=== PATIENT | female | born 1940 | race Caucasian/White ===

== ENCOUNTER → 2024-06-11 | Outpatient (CLI) | payer MEDICARE, BC, SELFPAY ==
[2024-06-11 17:03] LABS: C-Reactive Protein 0.5 mg/dL (0.0-0.9)
[2024-06-11 17:46] LABS: Sed Rate (ESR) 4 mm/hr (0-30)
== END | disposition home or self-care (01) ==
LOC: COPL 15:44
PROVIDERS: PCP Internal Medicine; Referring Provider Orthopaedic Surgery; Visit Provider Orthopaedic Surgery
DX: Z96.641 Presence of right artificial hip joint (principal)
CPT/HCPCS: 36415; 85652; 86140

== ENCOUNTER → 2024-06-25 | Outpatient (CLI) | payer MEDICARE, BC, SELFPAY ==
--- NOTE | 2024-06-25 | XR_ITS ---
Examination: MRI pelvis, without contrast Date and time of exam: June 25, 2024 0732 hours INDICATIONS: Left hip pain 3 months increasing in severity the last 3 weeks Technique: Multiple axial sagittal and coronal images of the pelvis have been obtained with the Siemens high-resolution 1.5 Bernadette MRI scanner. Images obtained include T2-weighted fat-suppressed sagittal sections, TR 3500, TE 46, T2 weighted coronal fat suppressed images, TR 3050, TE 84, T2-weighted transverse fat suppressed images, TR 3260, TE 63, proton density transverse images, TR 4720 TE 46, and T1 weighted coronal images, TR 560, TE 13. Findings: Extensive magnetic susceptibility artifact right hip secondary to orthopedic hardware Mild narrowing left hip joint No left hip fracture or bone contusion marrow edema or avascular necrosis No labral tear identified Adequate marrow signal bones of the pelvis, transpedicular fixation screws degrade image quality in the sacrum Urinary bladder intact No free fluid in the pelvis IMPRESSION: Mild narrowing left hip joint No left hip fracture bone contusion marrow edema or avascular necrosis Consider follow-up high resolution small [id number] images left hip to assess for labral tear
== END | disposition home or self-care (01) ==
LOC: SMRI 06:56
PROVIDERS: PCP Internal Medicine; Referring Provider Orthopaedic Surgery; Visit Provider Orthopaedic Surgery
DX: M25.852 Other specified joint disorders, left hip (principal); Z96.641 Presence of right artificial hip joint
CPT/HCPCS: 72195

== ENCOUNTER → 2024-06-30 | Outpatient (CLI) | payer MEDICARE, BC, SELFPAY ==
[2024-06-30 13:40] LABS: Thyroid Stimulating Hormone 4.63 uIU/mL (0.55-4.78)
[2024-07-07 06:51] LABS: ANA Pattern NUCLEAR, SPECKLED; ANA Screen, IFA POSITIVE (NEGATIVE)
== END | disposition home or self-care (01) ==
LOC: COPL 12:21
PROVIDERS: PCP Internal Medicine; Referring Provider Specialist; Visit Provider Specialist
DX: Z01.89 Encounter for other specified special examinations (principal)
CPT/HCPCS: 36415; 84443; 86038; 86039

== ENCOUNTER 2024-07-11 13:46 | Day surgery (SDC) | payer MEDICARE, BC, SELFPAY ==
[2024-07-11] VITALS (9 sets, daily range): BP systolic 131–172; BP diastolic 73–117; PULSE 55–69; RESP 10–22; TEMP 36.8; O2SAT 95–99; BMI 33.6
[2024-07-11] MEDS: DiphenhydrAMINE INJ 50 MG/ML VIAL 25 MG IV (14:55)
[2024-07-11] MEDS: MIDAZOLAM INJ 1 MG/ML VIAL 2 ML (ASD USE ONLY) 2 MG IV (14:57)
[2024-07-11] MEDS: fentaNYL CIT INJ 50 mCg/ML AMP 2ML (ASD USE ONLY) IV (14:58)
--- NOTE | 2024-07-11 16:38 | SUR.PHASEII ---
1416: Pt received for recovery. Report from Miguelina SHEARER. Pt groggy, but awake. Resp even, unlabored. VS stable. Denies pain. 1545: Pt more awake, alert. Sitting up tolerating po fluids with no difficulty swallowing and no n/v. 1500: Pt fully awake, oriented x3. Pt assisted to restroom. Ambulation steady. 1620: Pt and stated understanding of discharge instructions. Pt also instructed to insulation supervisor her prescription at [facility]. Pt discharged from [facility] in stable condition.
== END 2024-07-11 16:20 | disposition home or self-care (01) ==
PROVIDERS: PCP Internal Medicine; Referring Provider Specialist; Visit Provider Specialist
PROC: (CPT 43239; principal; 2024-07-11 14:30)
DX: K22.2 Esophageal obstruction (principal); K29.71 Gastritis, unspecified, with bleeding; K22.11 Ulcer of esophagus with bleeding; K31.89 Other diseases of stomach and duodenum; K29.51 Unspecified chronic gastritis with bleeding
CPT/HCPCS: 43248; 43239; C1769; J1200; J2250; J3010

== ENCOUNTER → 2024-08-28 | Outpatient (CLI) | payer MEDICARE, BC, SELFPAY ==
[2024-08-28 11:01] LABS: Collection Type, Urine Clean Catch
[2024-08-28 11:27] LABS: Basophils % (Auto) 1 % (0-2.5); Eosinophils # (Auto) 0.2 Thou/mm3 (0.0-0.5); Eosinophils % (Auto) 4 % (0-10); Hematocrit 45.2 % (36.0-46.0); Immature Granulocytes % (Auto) 0 % (0-0); Immature Granulocytes Auto 0.01 Thou/mm3 (0.00-0.00); Lymphocytes # (Auto) 1.2 Thou/mm3 (1.0-4.8); Lymphocytes % (Auto) 27 % (10-50); Mean Corpuscular HGB Conc 33.2 g/dl (31.0-37.0); Mean Corpuscular Hemoglobin 31.1 pg (25.0-35.0); Mean Corpuscular Volume 94 fL (80-100); Monocytes # (Auto) 0.4 Thou/mm3 (0.0-0.8); Monocytes % (Auto) 8 % (0-12); Neutrophils # (Auto) 2.8 Thou/mm3 (1.8-7.7); Neutrophils % (Auto) 61 % (37-80); Nucleated Red Blood Cell % 0 /100 WBC (0); Platelet Count 296 Thou/mm3 (140-440); RDW Standard Deviation 42.3 fL (36.4-46.3); Red Blood Count 4.83 Miln/mm3 (4.00-5.20); White Blood Count 4.6 Thou/mm3 (3.6-11.0)
[2024-08-28 11:33] LABS: Bacteria,Urine 1+; Bilirubin,Urine Negative (Negative); Blood,Urine Negative (Negative); Clarity,Urine Turbid (Clear/Hazy); Color,Urine Yellow (Lt Yel-Yel); Glucose, Urine Negative (Negative); Hyaline Casts,Urine < 1 /hpf (0-1); Ketones,Urine Negative (Negative); Leukocyte Esterase,Urine Positive (Negative); Nitrite,Urine Positive (Negative); Protein,Urine Trace (Neg - Trace); RBC,Urine 2 /hpf (0-3); Squamous Epithelial Cell,Urine < 1 /hpf (0-5); Urobilinogen,Urine Negative mg/dL (0.0-1.0); WBC,Urine 149 /hpf (0-5)
[2024-08-28 11:58] LABS: Alanine Aminotransferase 15 U/L (10-49); Albumin, Serum 4.3 gm/dL (3.4-4.8); Albumin/Globulin Ratio 1.6 (1.2-2.2); Alkaline Phosphatase 71 U/L (46-116); Anion Gap 10 (7-16); Aspartate Amino Transferase 16 U/L (0-34); BUN/Creatinine Ratio 19 Ratio (12-20); Bilirubin,Total 0.8 mg/dL (0.3-1.2); Blood Urea Nitrogen 21 mg/dL (9-23); Calcium 9.1 mg/dL (8.3-10.6); Calcium (Corrected) 9.1 mg/dL (8.5-10.1); Carbon Dioxide 26.4 mMol/L (20.0-31.0); Cardiac Risk Estimate 3.3 RATIO (3.7-5.6); Chloride 108 mMol/L (98-107); Cholesterol 202 mg/dL (132-200); Creatinine (Component) 1.1 mg/dL (0.6-1.3); Globulin 2.7 gm/dL (2.3-3.5); Glucose 88 mg/dL (74-106); HDL Cholesterol 61 mg/dL (40-60); LDL Cholesterol,Calculated 122 mg/dL (0-130); Osmolality,Calculated 288 (275-295); Potassium 4.6 mMol/L (3.4-5.1); Sodium 144 mMol/L (136-145); Triglycerides 96 mg/dL (30-150); eGFR 50 See Note
== END | disposition home or self-care (01) ==
LOC: COPL 10:17
PROVIDERS: PCP Internal Medicine; Referring Provider Internal Medicine; Visit Provider Internal Medicine
DX: I10 Essential (primary) hypertension (principal); E78.5 Hyperlipidemia, unspecified
CPT/HCPCS: 36415; 80053; 80061; 81001; 85025

== ENCOUNTER 2024-09-25 02:59 | Emergency (ER) | payer MEDICARE, BC, SELFPAY ==
[2024-09-25 02:59] VITALS: BMI 33.6
[2024-09-25 03:04] VITALS: BP 161/96; PULSE 92; RESP 17; TEMP 37.3; O2SAT 95
--- NOTE | 2024-09-25 03:10 | XR_ITS ---
Examination: CT abdomen with intravenous contrast CT pelvis with intravenous contrast 2-D coronal reconstructions 2-D sagittal reconstructions Date and time of exam:September 25, 2024 at 0543 hrs. Indications: Onset abdominal pain beginning yesterday, history of bowel surgery 4 years ago. CTDI: vol (mGy) 12.6 DLP: (mGycm) 683 Technique: Multiple axial sections of the abdomen and pelvis have been obtained. 64 slice high-resolution scanner used. 3 mm axial sections have been obtained, post intravenous injection 60 cc [id number] 2-D sagittal, coronal reconstructions obtained. Low dose protocols were performed. One or more of the following dose reduction techniques were used; automated exposure control, adjustment of the mA and/or KV according to patient size, use of iterative reconstruction technique. Findings: No focal liver or splenic lesions Absent gallbladder No pancreatic or adrenal mass Mild perinephric stranding Small benign renal cysts Mild bilateral renal parenchymal scar formation Abdominal aortic calcification no aneurysmal dilatation No pericecal inflammatory change Small fat-containing hernia defect in the anterior pelvic wall Absent uterus No pelvic mass Extensive thoracolumbar transpedicular fusion Right hip arthroplasty obscures detail of the pelvis Moderate narrowing left hip joint Impression: Mild bilateral renal parenchymal scar formation, no hydronephrosis Small fat-containing hernia defect in the anterior pelvic wall No pericecal inflammatory change No bowel obstruction or diverticulitis
--- NOTE | 2024-09-25 03:10 | PD.EDRME ---
Rapid Medical Screening Exam E Arrival date/time: 09/25/24 02:59 84F with history of HTN and SBO needing colostomy bag (reversed by Dr. Clark) presents to ED with 2 days of gen ab pain, dysuria, and tenesmus. Patient states last time she felt like this, she had her SBO. Chief Complaint: Abdominal Pain Vital signs: Vital Signs Temperature 99.2 F 09/25/24 03:04 Pulse Rate 92 09/25/24 03:04 Respiratory Rate 17 09/25/24 03:04 Blood Pressure 161/96 H 09/25/24 03:04 Pulse Oximetry (%) 95 09/25/24 03:04 Oxygen Delivery Method Room Air 09/25/24 03:04
[2024-09-25 04:07] LABS: Collection Type, Urine Clean Catch; RBC,Urine 0 /hpf (0-3)
[2024-09-25 04:08] LABS: Basophils # (Auto) 0.1 Thou/mm3 (0.0-0.2); Basophils % (Auto) 1 % (0-2.5); Eosinophils # (Auto) 0.2 Thou/mm3 (0.0-0.5); Eosinophils % (Auto) 3 % (0-10); Hematocrit 40.2 % (36.0-46.0); Hemoglobin 14.2 g/dL (12.0-16.0); Immature Granulocytes % (Auto) 0 % (0-0); Immature Granulocytes Auto 0.01 Thou/mm3 (0.00-0.00); Lymphocytes # (Auto) 1.3 Thou/mm3 (1.0-4.8); Lymphocytes % (Auto) 23 % (10-50); Mean Corpuscular HGB Conc 35.3 g/dl (31.0-37.0); Mean Corpuscular Hemoglobin 31.3 pg (25.0-35.0); Mean Corpuscular Volume 89 fL (80-100); Monocytes # (Auto) 0.5 Thou/mm3 (0.0-0.8); Monocytes % (Auto) 10 % (0-12); Neutrophils # (Auto) 3.5 Thou/mm3 (1.8-7.7); Neutrophils % (Auto) 63 % (37-80); Nucleated Red Blood Cell % 0 /100 WBC (0); Platelet Count 272 Thou/mm3 (140-440); RDW Standard Deviation 39.6 fL (36.4-46.3); Red Blood Count 4.54 Miln/mm3 (4.00-5.20); White Blood Count 5.6 Thou/mm3 (3.6-11.0)
[2024-09-25 04:16] LABS: Lactate (Lactic Acid) 1.3 mMol/L (0.4-2.0)
[2024-09-25 04:31] LABS: Bacteria,Urine Rare; Bilirubin,Urine Negative (Negative); Blood,Urine Negative (Negative); Clarity,Urine Clear (Clear/Hazy); Color,Urine Colorless (Lt Yel-Yel); Glucose, Urine Negative (Negative); Ketones,Urine Negative (Negative); Leukocyte Esterase,Urine Positive (Negative); Nitrite,Urine Positive (Negative); PH,Urine 6.5 (5.0-7.0); Protein,Urine Negative (Neg - Trace); Specific Gravity,Urine 1.006 (1.001-1.035); Squamous Epithelial Cell,Urine 1 /hpf (0-5); Urobilinogen,Urine Negative mg/dL (0.0-1.0); WBC,Urine 23 /hpf (0-5)
[2024-09-25 04:38] LABS: Alanine Aminotransferase 15 U/L (10-49); Albumin, Serum 4.2 gm/dL (3.4-4.8); Albumin/Globulin Ratio 1.6 (1.2-2.2); Alkaline Phosphatase 71 U/L (46-116); Anion Gap 8 (7-16); Aspartate Amino Transferase 25 U/L (0-34); BUN/Creatinine Ratio 14 Ratio (12-20); Bilirubin,Total 0.3 mg/dL (0.3-1.2); Blood Urea Nitrogen 15 mg/dL (9-23); Calcium 9.1 mg/dL (8.3-10.6); Calcium (Corrected) 9.1 mg/dL (8.5-10.1); Carbon Dioxide 24.6 mMol/L (20.0-31.0); Chloride 110 mMol/L (98-107); Creatinine (Component) 1.1 mg/dL (0.6-1.3); Estimated Creatinine Clearance 41.1 mL/min (>60); Globulin 2.7 gm/dL (2.3-3.5); Glucose 105 mg/dL (74-106); Lipase 36 U/L (12-53); Osmolality,Calculated 285 (275-295); Potassium 3.8 mMol/L (3.4-5.1); Procalcitonin 0.06 ng/ml (0.0-0.49); Sodium 143 mMol/L (136-145); Total Protein 6.9 gm/dL (5.7-8.2); eGFR 50 See Note
[2024-09-25 04:44] LABS: Culture Indicated,Urine Yes
--- NOTE | 2024-09-25 06:22 | PD.EDABDPN ---
ED Abdominal Pain RME/HPI General Chief Complaint: Abdominal Pain Stated complaint: ABD PAIN Time seen by provider: 09/25/24 06:08 Arrival date/time: 09/25/24 02:59 RME / HPI RME / HPI narrative: 09/25/24 02:59 84F with history of HTN and SBO needing colostomy bag (reversed by Dr. Clark) presents to ED with 2 days of gen ab pain, dysuria, and tenesmus. Patient states last time she felt like this, she had her SBO. Patient has no fever, vomiting, diarrhea. She has no other complaints or problems today. Related Data Home Medications ?Medication ?Instructions ?Recorded ?Confirmed oxybutynin chloride 10 mg 10 mg PO BID 09/25/18 07/11/24 tablet,extended release 24 hr valsartan 160 mg tablet 160 mg PO DAILY 12/03/22 07/11/24 amlodipine 5 mg tablet 5 mg PO DAILY 11/27/23 07/11/24 apixaban 5 mg tablet (Eliquis) 5 mg PO BID 11/27/23 07/11/24 propranolol 20 mg tablet 75 mg PO BID 11/27/23 07/11/24 celecoxib 200 mg capsule 200 mg PO QDAY 07/11/24 07/11/24 Previous Rx's ?Medication ?Instructions ?Recorded metoclopramide HCl 5 mg tablet 5 mg PO BID #60 tabs 07/11/24 (Reglan) omeprazole 40 mg capsule,delayed 40 mg PO QDAY #30 caps 07/11/24 release cephalexin 500 mg capsule 500 mg PO QID #28 caps 09/25/24 Allergies Allergy/AdvReac Type Severity Reaction Status Date / Time latex Allergy Severe Hives Verified 07/11/24 15:29 Review of Systems Review of Systems Narrative Review of Systems: Constitutional: DENIES; Fevers Eyes: DENIES; Loss of vision Head/Ear/Nose: DENIES; Loss of hearing Throat: DENIES; Dysphagia Cardiovascular: DENIES; Chest pain, dyspnea or syncope Respiratory: DENIES; Shortness of breath Gastrointestinal: SEE HPI +abd pain DENIES; Rectal bleeding or melena. Genitourinary: SE HPI +dysuria Musculoskeletal: DENIES; Arthralgia (pain in a joint),; Skin: DENIES; Rash Neurological: DENIES; Loss of function or movement Psychiatric: DENIES; recent major life stressor, emotional problem, illicit drug use or abuse Endocrinology: DENIES; Weight change Hematologic/Lymphatic: DENIES; Abnormal bruising Allergic/Immunologic: DENIES; Urticaria (hives) Past Medical History Past Medical History NEUROLOGIC: Positive Neurological Disorders and Transient Ischemic Attacks (TIA) CARDIAC: Positive Cardiac Disorders, Hypercholesterolemia, Deep Vein Thrombosis and Hypertension RESPIRATORY: Positive Pulmonary Embolism GASTROINTESTINAL: Positive Gastrointestinal Disorders, Gall Bladder Disease and Diverticulitis MUSCULOSKELETAL: Positive Musculoskeletal Disorders, Arthritis and Carpal Tunnel Syndrome ENT: Positive Cataracts OTHER HISTORY: Positive Hospitalization, Blood Transfusions, Chicken Pox, Measles and Mumps Family History FAMILY HISTORY: Positive Family Cancer Surgical History SURGICAL: Positive Tonsillectomy, Abdominal Surgery (HX OF COLOSTOMY BAG), Bowel Surgery, Joint Replacement, Hysterectomy and Tubal Ligation Social History SMOKING STATUS: Never smoker SUBSTANCE USE: does not use ED Exam Narrative Physical exam: Physical Exam: General: The vital signs were reviewed. The patient is non-toxic, in no apparent distress and appears healthy with a patent airway, no respiratory distress and has no apparent circulatory problems. Head & Scalp: Normocephalic, atraumatic. Face: Appears normal and is without lesions, deformity. Ears: Left external pinna appears normal. Right external pinna appears normal. Eyes: The sclera is anicteric. No obvious photophobia. The Left and Right Orbit/Lid/Conjunctiva appears normal without swelling, discoloration or injection. Nose: The nose is without deformity, discharge or tenderness; Throat: Appears normal. The mucous membranes are pink and moist without exudates, redness or mass seen. The tongue appears normal. Neck: The neck is supple and no apparent mass or adenopathy. Chest: The chest wall is normal in size and symmetry and has no chest wall tenderness or crepitus. The patient displays normal ventilator effort without retractions, accessory muscle use and has adequate air movement bilaterally with no wheezes and no rales. Cardiovascular: Regular rate and rhythm; No murmurs, rubs, or gallops; Gastrointestinal: The abdomen appears normal. No obvious hernias or mass. The abdomen has some very vague left lower quadrant tenderness otherwise is soft and benign, non-distended, with no pain, no guarding and no rebound tenderness. Bowel sounds are present and normal sounding. No CVA tenderness. Genitourinary: Back/Spine: Normal inspection Extremities/Musculoskeletal/lymphatic: The bilateral upper and lower extremities are warm. There is no evidence of arterial insufficiency. There is no evidence of venous insufficiency/edema. The patient spontaneously moves bilateral upper and lower extremities with no pain and no limitation of movement. There is no apparent, injury or trauma. Skin: The skin is warm, dry and intact. No rashes. No petechia. No purpura. No abnormal bruising. The color is appropriate with no cyanosis. Mental status/Psychiatric: Mental status is appropriate for age. The patient has no apparent delusions, visual hallucinations, no apparent audible hallucinations. The patient has no apparent suicidal thoughts/ideation and no apparent homicidal thoughts/ideation. Neurological: The patient is awake, alert, interactive, cordial, cooperative and is oriented to name and situation. The patient follows commands and answers historical question with no impairment. There is no visual disturbance apparent. The pupils are equal and reactive bilaterally with normal eye movements and no diplopia The bilateral upper and lower extremities have normal strength, normal range of motion and normal functioning. The gait, station and balance appear to be baseline with no acute change Course Quality Measures none Orders Category Date Time Status CT Screening NOW Care 09/25/24 03:10 Completed Insert IV NOW Care 09/25/24 03:[address] abdomen pelvis w con Stat Exams 09/25/24 03:10 Completed Blood Culture (Lab) Stat Lab 09/25/24 06:48 Received CBC Stat Lab 09/25/24 03:50 Completed CMP [Comprehensive Metabolic Panel] Stat Lab 09/25/24 03:50 Completed Lactate (Lactic Acid) Stat Lab 09/25/24 03:50 Completed Lipase Stat Lab 09/25/24 03:50 Completed Procalcitonin Stat Lab 09/25/24 03:50 Completed Urinalysis, C/S if Indicated Stat Lab 09/25/24 03:29 Completed Urine Culture Stat Lab 09/25/24 03:29 Received Piper/Tazo Inj [Zosyn Inj] 3.375 gm Med 09/25/24 06:27 Discontinued SODIUM CHLORIDE 0.9% (Popper) [NS 0.9% (Popper)] 50 ml IV X1 Vital Signs Vital signs: Vital Signs Temperature 99.2 F 09/25/24 03:04 Pulse Rate 92 09/25/24 03:04 Respiratory Rate 17 09/25/24 03:04 Blood Pressure 161/96 H 09/25/24 03:04 Pulse Oximetry (%) 95 09/25/24 03:04 Oxygen Delivery Method Room Air 09/25/24 03:04 Pulse ox is 95% on room air which is adequate. Abdominal Pain MDM MDM Narrative MDM Narrative:: First note this patient was seen last night and evidently was overlooked and sat in the room for an extended period of time before my arrival at 0600 hrs. The patient presents with lower abdominal pain but on clinical exam his left lower quadrant pain and it seems to be similar to previous diverticulitis. She also has 25 white cells on urine is complaining of urinary frequency. Patient has no fever vomiting diarrhea CBC white count 5.6 hemoglobin 14.2 CMP has a sodium 143 potassium 3.8 BUN 15 creatinine 1.1 lactic acid came back at 1.3. Urinalysis is essentially negative except for 23 white cells which may explain the urinary frequency. On reexamination she still has some minimal left lower quadrant tenderness. Her CAT scan reveals no evidence of diverticulitis but the patient was pretty convinced that she does have diverticulitis. I contacted the radiologist and discussed the case specifically and he does not feel there is any evidence of diverticulitis there is moderate amount of stool present. Had a long discussion with the patient about choice of antibiotic and whether we should do something to cover his occult diverticulitis. At this time we will send her home on cephalexin to cover the UTI. And she knows to return if getting worse in any way. Cephalexin was prescribed for the urinary tract infection. She appears understand her advisements and precautions. Patient data External records reviewed:: [facility] previous records Clinical information provided by:: patient Social determinants that could affect healthcare access:: none Patient has the following chronic illnesses:: hypertension, h/o left leg DVT, PE How is presenting disease/condition affected by chronic disease/condition?: exacerbated by Evaluation data The following diagnostics were reviewed and interpreted by me:: lab results and radiology exam(s) Lab and/or radiology exams considered but not ordered:: None Interpretation Summary: Ordering Physician: Mark Rao PA-C Date of Service: 09/25/24 Procedure(s): CT abdomen pelvis w con Accession Number(s): [id number] cc: Jaiden Camacho MD; Mark Rao PA-C; Beverly Fan MD~ Examination: CT abdomen with intravenous contrast CT pelvis with intravenous contrast 2-D coronal reconstructions 2-D sagittal reconstructions Date and time of exam:September 25, 2024 at 0543 hrs. Indications: Onset abdominal pain beginning yesterday, history of bowel surgery 4 years ago. CTDI: vol (mGy) 12.6 DLP: (mGycm) 683 Technique: Multiple axial sections of the abdomen and pelvis have been obtained. 64 slice high-resolution scanner used. 3 mm axial sections have been obtained, post intravenous injection 60 cc [id number] 2-D sagittal, coronal reconstructions obtained. Low dose protocols were performed. One or more of the following dose reduction techniques were used; automated exposure control, adjustment of the mA and/or KV according to patient size, use of iterative reconstruction technique. Findings: No focal liver or splenic lesions Absent gallbladder No pancreatic or adrenal mass Mild perinephric stranding Small benign renal cysts Mild bilateral renal parenchymal scar formation Abdominal aortic calcification no aneurysmal dilatation No pericecal inflammatory change Small fat-containing hernia defect in the anterior pelvic wall Absent uterus No pelvic mass Extensive thoracolumbar transpedicular fusion Right hip arthroplasty obscures detail of the pelvis Moderate narrowing left hip joint Impression: Mild bilateral renal parenchymal scar formation, no hydronephrosis Small fat-containing hernia defect in the anterior pelvic wall No pericecal inflammatory change No bowel obstruction or diverticulitis Dictated By: Jaiden Camacho MD Signed By: <Electronically signed by Jaiden Camacho MD in OV> 09/25/24 0840 Medications / Prescriptions Medications or Prescriptions considered but not ordered:: None Medication administrations:: Medication Administration History Discontinued Medications Piperacillin Sod/Tazobactam (Sod 3.375 gm/ Sodium Chloride) 50 mls @ 100 mls/hr IV X1 ONE Stop: 09/25/24 06:56 Last Infusion: 09/25/24 08:12 Dose: Infused Documented By: Admin: 09/25/24 07:07 Dose: 100 mls/hr Documented By: JUAN See above Consultations Consultation(s) initiated? (list below): No Diagnosis Differential diagnosis abdominal pain: abdominal pain, calculus of kidney, constipation, diverticulitis and gastroenteritis Most likely diagnosis given after review of the tests above:: abdominal pain, lower urinary frequency Urinary tract infection Admission Indicated Admission indicated?: not indicated Admission Request Was there a request for admission?: No Disposition Plan Disposition Plan: Discharge Discharge Attestation Discharge Attestation: The patient and all family members were given an opportunity to ask questions and understood the discharge instructions. Discharge instructions specifically effects, indications for sooner follow up or return to the emergency department, and the expected course of current diagnosis. Patient condition: Stable Discharge Plan Plan Patient Disposition: HOME (Self Care) Prescriptions/Referrals Prescriptions/Med Rec: New cephalexin 500 mg capsule 500 mg PO QID Qty: 28 0RF No Action oxybutynin chloride 10 mg Tablet Extended Release 24hr 10 mg PO BID celecoxib 200 mg capsule 200 mg PO QDAY Patient Comments: TAKE 1 CAPSULE BY MOUTH EVERY DAY omeprazole 40 mg Capsule,Delayed Release(Dr/Ec) 40 mg PO QDAY Qty: 30 2RF metoclopramide HCl [Reglan] 5 mg Tablet 5 mg PO BID Qty: 60 2RF valsartan 160 mg tablet 160 mg PO DAILY Patient Comments: TAKE 1 TABLET BY MOUTH EVERY DAY amlodipine 5 mg tablet 5 mg PO DAILY propranolol 20 mg tablet 75 mg PO BID Eliquis 5 mg tablet 5 mg PO BID Patient Comments: TAKE 1 TABLET BY MOUTH TWICE A DAY FOR 30 DAYS Referrals: Beverly Fan MD [Primary Care Provider] - In 1 week Problem List Clinical Impression: Abdominal pain, lower, Urinary frequency, Urinary tract infection Patient/Caregiver Discharge Instructions Education Materials: Abdominal Pain, Urinary Tract Infections in Women Additional Instructions: Follow-up with your doctor as we discussed in 1 to 2 days. Return if getting worse as we discussed. Make sure your doctor follows up on the urine culture for the UTI. Print Language: Azeri
[2024-09-25 06:26] VITALS: BP 156/76; PULSE 80; RESP 18; TEMP 37.2; O2SAT 100
[2024-09-25] MEDS: PIPER/TAZO INJ 3.375 GM in SODIUM CHLORIDE 0.9% (Popper) 50 ML IV (07:07)
[2024-09-25 10:14] VITALS: BP 140/89; PULSE 57; RESP 18; TEMP 36.4; O2SAT 99
[2024-09-25 11:18] VITALS: BP 140/58; PULSE 77; RESP 16; TEMP 36.7; O2SAT 100
== END 2024-09-25 11:08 | disposition home or self-care (01) ==
PROVIDERS: Physician Assistant; Emergency Provider Emergency Medicine; PCP Internal Medicine
DX: N39.0 Urinary tract infection, site not specified (principal); R10.9 Unspecified abdominal pain
CPT/HCPCS: 36415; 74177; 80053; 81001; 83605; 83690; 84145; 85025; 87040; 87077; 87086; 87186; 96365; 99285; A4649; J2543; J7050; Q9967

== ENCOUNTER → 2024-10-01 | Outpatient (CLI) | payer MEDICARE, BC, SELFPAY ==
[2024-10-01 11:32] LABS: Basophils # (Auto) 0.1 Thou/mm3 (0.0-0.2); Basophils % (Auto) 1 % (0-2.5); Eosinophils # (Auto) 0.1 Thou/mm3 (0.0-0.5); Eosinophils % (Auto) 3 % (0-10); Hematocrit 41.8 % (36.0-46.0); Hemoglobin 14.3 g/dL (12.0-16.0); Immature Granulocytes % (Auto) 0 % (0-0); Immature Granulocytes Auto 0.01 Thou/mm3 (0.00-0.00); Lymphocytes # (Auto) 1.4 Thou/mm3 (1.0-4.8); Lymphocytes % (Auto) 31 % (10-50); Mean Corpuscular HGB Conc 34.2 g/dl (31.0-37.0); Mean Corpuscular Hemoglobin 30.6 pg (25.0-35.0); Mean Corpuscular Volume 89 fL (80-100); Monocytes # (Auto) 0.4 Thou/mm3 (0.0-0.8); Monocytes % (Auto) 8 % (0-12); Neutrophils # (Auto) 2.6 Thou/mm3 (1.8-7.7); Neutrophils % (Auto) 58 % (37-80); Nucleated Red Blood Cell % 0 /100 WBC (0); Platelet Count 310 Thou/mm3 (140-440); RDW Standard Deviation 40.9 fL (36.4-46.3); Red Blood Count 4.68 Miln/mm3 (4.00-5.20); White Blood Count 4.6 Thou/mm3 (3.6-11.0)
[2024-10-01 11:36] LABS: INR 1.1 (0.9-1.3); Partial Thromboplastin Time 28.6 Seconds (22.0-36.0); Prothrombin Time 11.5 Seconds (9.0-12.2)
[2024-10-01 12:28] LABS: Alanine Aminotransferase 14 U/L (10-49); Albumin, Serum 4.1 gm/dL (3.4-4.8); Albumin/Globulin Ratio 1.8 (1.2-2.2); Alkaline Phosphatase 67 U/L (46-116); Anion Gap 7 (7-16); Aspartate Amino Transferase 20 U/L (0-34); BUN/Creatinine Ratio 15 Ratio (12-20); Bilirubin,Total 0.6 mg/dL (0.3-1.2); Blood Urea Nitrogen 15 mg/dL (9-23); C-Reactive Protein < 0.5 mg/dL (0.0-0.9); Carbon Dioxide 26.7 mMol/L (20.0-31.0); Chloride 110 mMol/L (98-107); Globulin 2.3 gm/dL (2.3-3.5); Glucose 88 mg/dL (74-106); Osmolality,Calculated 286 (275-295); Potassium 4.4 mMol/L (3.4-5.1); Sodium 144 mMol/L (136-145); Total Protein 6.4 gm/dL (5.7-8.2); eGFR 56 See Note
[2024-10-01 14:29] LABS: Sed Rate (ESR) 4 mm/hr (0-30)
== END | disposition home or self-care (01) ==
LOC: COPL 10:07
PROVIDERS: PCP Internal Medicine; Referring Provider Internal Medicine; Visit Provider Internal Medicine
DX: Z01.818 Encounter for other preprocedural examination (principal); Z01.812 Encounter for preprocedural laboratory examination; Z79.899 Other long term (current) drug therapy; R82.90 Unspecified abnormal findings in urine; D68.9 Coagulation defect, unspecified; R70.0 Elevated erythrocyte sedimentation rate
CPT/HCPCS: 36415; 80053; 85025; 85610; 85652; 85730; 86140

== ENCOUNTER 2024-11-02 18:41 | Emergency (ER) | payer MEDICARE, BC, SELFPAY ==
[2024-11-02 19:49] VITALS: BP 136/79; PULSE 76; RESP 16; TEMP 36.9; O2SAT 96
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
[2024-11-02 20:19] VITALS: RESP 18
== END 2024-11-02 20:20 | disposition home or self-care (01) ==
PROVIDERS: Emergency Provider Emergency Medicine; PCP Internal Medicine
DX: R09.89 Other specified symptoms and signs involving the circulatory and respiratory systems (principal)
CPT/HCPCS: 99281

== ENCOUNTER → 2025-02-05 | Outpatient (CLI) | payer MEDICARE, BC, SELFPAY ==
--- NOTE | 2025-02-05 14:18 | XR_ITS ---
Examination: Abdomen AP single view Technique: AP portable supine abdomen, single view Exam date and time: February 05, 2025 1422 hours INDICATIONS: Abdominal pain post diverticulitis episode 5 years ago. FINDINGS: Nonobstructive bowel gas pattern. Mild small bowel ileus. Extensive transpedicular thoracolumbar fusion No free air IMPRESSION: Mild small bowel ileus
[2025-02-05 15:16] LABS: Collection Type, Urine Clean Catch
[2025-02-05 16:40] LABS: Basophils # (Auto) 0.1 Thou/mm3 (0.0-0.2); Basophils % (Auto) 1 % (0-2.5); Eosinophils # (Auto) 0.2 Thou/mm3 (0.0-0.5); Eosinophils % (Auto) 3 % (0-10); Hematocrit 41.1 % (36.0-46.0); Hemoglobin 14.2 g/dL (12.0-16.0); Immature Granulocytes Auto 0.03 Thou/mm3 (0.00-0.00); Lymphocytes # (Auto) 1.6 Thou/mm3 (1.0-4.8); Lymphocytes % (Auto) 27 % (10-50); Mean Corpuscular HGB Conc 34.5 g/dl (31.0-37.0); Mean Corpuscular Hemoglobin 29.7 pg (25.0-35.0); Mean Corpuscular Volume 86 fL (80-100); Monocytes # (Auto) 0.5 Thou/mm3 (0.0-0.8); Monocytes % (Auto) 9 % (0-12); Neutrophils # (Auto) 3.6 Thou/mm3 (1.8-7.7); Neutrophils % (Auto) 60 % (37-80); Nucleated Red Blood Cell # 0.00 Thou/mm3 (0.00-0.00); Nucleated Red Blood Cell % 0 /100 WBC (0); Platelet Count 345 Thou/mm3 (140-440); RDW Standard Deviation 42.6 fL (36.4-46.3); Red Blood Count 4.78 Miln/mm3 (4.00-5.20); White Blood Count 6.0 Thou/mm3 (3.6-11.0)
[2025-02-05 16:47] LABS: Alanine Aminotransferase 13 U/L (10-49); Albumin, Serum 4.3 gm/dL (3.4-4.8); Albumin/Globulin Ratio 1.5 (1.2-2.2); Alkaline Phosphatase 64 U/L (46-116); Amylase 60 U/L (30-118); Anion Gap 9 (7-16); Aspartate Amino Transferase 23 U/L (0-34); BUN/Creatinine Ratio 10 Ratio (12-20); Bilirubin,Total 0.5 mg/dL (0.3-1.2); Blood Urea Nitrogen 11 mg/dL (9-23); Calcium 9.0 mg/dL (8.3-10.6); Calcium (Corrected) 9.0 mg/dL (8.5-10.1); Carbon Dioxide 27.9 mMol/L (20.0-31.0); Chloride 109 mMol/L (98-107); Creatinine (Component) 1.1 mg/dL (0.6-1.3); Globulin 2.8 gm/dL (2.3-3.5); Glucose 96 mg/dL (74-106); Lipase 30 U/L (12-53); Osmolality,Calculated 289 (275-295); Potassium 4.5 mMol/L (3.4-5.1); Sodium 146 mMol/L (136-145); Total Protein 7.1 gm/dL (5.7-8.2); eGFR 49 See Note
[2025-02-05 17:05] LABS: Bilirubin,Urine Negative (Negative); Blood,Urine Trace (Negative); Clarity,Urine Clear (Clear/Hazy); Color,Urine Yellow (Lt Yel-Yel); Glucose, Urine Negative (Negative); Hyaline Casts,Urine < 1 /hpf (0-1); Ketones,Urine Negative (Negative); Leukocyte Esterase,Urine Positive (Negative); Nitrite,Urine Negative (Negative); PH,Urine 6.0 (5.0-7.0); Protein,Urine Negative (Neg - Trace); RBC,Urine 3 /hpf (0-3); Specific Gravity,Urine 1.020 (1.001-1.035); Squamous Epithelial Cell,Urine 3 /hpf (0-5); Urobilinogen,Urine Negative mg/dL (0.0-1.0); WBC,Urine 45 /hpf (0-5)
== END | disposition home or self-care (01) ==
LOC: CDIM 14:14 → COPL 14:47
PROVIDERS: PCP Internal Medicine; Referring Provider Internal Medicine; Visit Provider Radiology Diagnostic Radiology
DX: K56.7 Ileus, unspecified (principal); R14.0 Abdominal distension (gaseous); R10.32 Left lower quadrant pain; R10.31 Right lower quadrant pain; R11.0 Nausea
CPT/HCPCS: 36415; 74018; 80053; 81001; 82150; 83690; 85025

== ENCOUNTER → 2025-02-09 | Outpatient (CLI) | payer MEDICARE, BC, SELFPAY ==
[2025-02-09 13:35] LABS: Albumin, Serum 4.1 gm/dL (3.4-4.8); Anion Gap 9 (7-16); BUN/Creatinine Ratio 11 Ratio (12-20); Blood Urea Nitrogen 11 mg/dL (9-23); Calcium 9.0 mg/dL (8.3-10.6); Calcium (Corrected) 9.0 mg/dL (8.5-10.1); Carbon Dioxide 25.9 mMol/L (20.0-31.0); Chloride 110 mMol/L (98-107); Creatinine (Component) 1.0 mg/dL (0.6-1.3); Glucose 100 mg/dL (74-106); Osmolality,Calculated 288 (275-295); Phosphorous 3.6 mg/dL (2.4-5.1); Potassium 4.4 mMol/L (3.4-5.1); Sodium 145 mMol/L (136-145); eGFR 55 See Note
== END | disposition home or self-care (01) ==
LOC: COPL 12:09
PROVIDERS: PCP Internal Medicine; Referring Provider Internal Medicine; Visit Provider Internal Medicine
DX: I10 Essential (primary) hypertension (principal)
CPT/HCPCS: 36415; 80069

== ENCOUNTER 2025-02-16 07:55 | Day surgery (SDC) | payer MEDICARE, BC, SELFPAY ==
--- NOTE | 2025-02-13 11:23 | EKG_ITS ---
[facility] Test Date: 2025-02-13 Pat Name: KWAKU MILLAN Department: Room: - Gender: Female Break Out Man: RYAN : 1940 Requested By: Radha Nieves Order Number: [id number] Reading MD: Radha Nieves Measurements Intervals [place] Rate: 54 P: 0 ID: [id number] QRS: -65 QRSD: 124 T: 15 QT: 461 QTc: 441 Interpretive Statements SINUS BRADYCARDIA RIGHT BUNDLE BRANCH BLOCK [120+ ms QRS DURATION, UPRIGHT V1, 40+ ms S IN I/aVL/V4/V5/V6] LEFT ANTERIOR FASCICULAR BLOCK [QRS AXIS <= -45, QR IN I, RS IN II] POSSIBLE ANTERIOR MYOCARDIAL INFARCTION , PROBABLY OLD [30 ms Q WAVE IN V3/V4, OR R < 0.2 mV IN V4] Compared to ECG 12/02/2022 12:10:15 Right bundle-branch block now present Sinus rhythm no longer present Incomplete right bundle-branch block no longer present Myocardial infarct finding still present /store/S0/[id number].pdf
[2025-02-13 12:24] LABS: INR 1.1 (0.9-1.3); Partial Thromboplastin Time 28.6 Seconds (22.0-36.0); Prothrombin Time 11.7 Seconds (9.0-12.2)
[2025-02-13 12:25] LABS: Alanine Aminotransferase 12 U/L (10-49); Albumin, Serum 4.2 gm/dL (3.4-4.8); Albumin/Globulin Ratio 1.5 (1.2-2.2); Alkaline Phosphatase 63 U/L (46-116); Anion Gap 11 (7-16); Aspartate Amino Transferase 22 U/L (0-34); BUN/Creatinine Ratio 12 Ratio (12-20); Bilirubin,Total 0.6 mg/dL (0.3-1.2); Blood Urea Nitrogen 12 mg/dL (9-23); Calcium 9.1 mg/dL (8.3-10.6); Calcium (Corrected) 9.1 mg/dL (8.5-10.1); Carbon Dioxide 26.9 mMol/L (20.0-31.0); Chloride 107 mMol/L (98-107); Creatinine (Component) 1.0 mg/dL (0.6-1.3); Globulin 2.8 gm/dL (2.3-3.5); Glucose 105 mg/dL (74-106); Osmolality,Calculated 288 (275-295); Potassium 4.3 mMol/L (3.4-5.1); Sodium 145 mMol/L (136-145); Total Protein 7.0 gm/dL (5.7-8.2); eGFR 55 See Note
[2025-02-13 13:40] LABS: HCG,Qualitative Serum Positive
[2025-02-16 08:39] VITALS: BP 134/79; PULSE 72; RESP 20; TEMP 36.8; O2SAT 96; BMI 32.4
[2025-02-16 10:24] VITALS: BP 153/70; PULSE 63; RESP 18; O2SAT 99
[2025-02-16] MEDS: RINGERS LACTATED 1000 ML 1,000 ML 20 ML IV (10:24)
[2025-02-16 10:50] VITALS: BP 115/64; PULSE 58; RESP 23; TEMP 36.5; O2SAT 97
[2025-02-16 11:00] VITALS: BP 127/58; PULSE 56; RESP 19; O2SAT 95
[2025-02-16 11:10] VITALS: BP 126/60; PULSE 55; RESP 17
[2025-02-16 11:20] VITALS: BP 129/71; PULSE 57; RESP 18; TEMP 36.5
--- NOTE | 2025-02-16 12:11 | SUR.PHASEII ---
1120 Pt denies pain or N/V. Abd remains soft. Pt vineet po fluids. Amb with steady gait. Able to dress self. Pt and given dc instructions. Both state understanding. Pt meets dc criteria-to home.
== END 2025-02-16 11:20 | disposition home or self-care (01) ==
PROVIDERS: PCP Internal Medicine; Referring Provider Specialist; Visit Provider Specialist
PROC: 0DBE8ZX Excision of Large Intestine, Via Natural or Artificial Opening Endoscopic, Diagnostic (ICD-10-PCS; CPT 45380; principal; 2025-02-16 15:00)
DX: K52.9 Noninfective gastroenteritis and colitis, unspecified (principal); K63.89 Other specified diseases of intestine; K62.89 Other specified diseases of anus and rectum; D12.5 Benign neoplasm of sigmoid colon; K64.9 Unspecified hemorrhoids; K57.30 Diverticulosis of large intestine without perforation or abscess without bleeding; Z01.810 Encounter for preprocedural cardiovascular examination
CPT/HCPCS: 45380; 36415; 80053; 84703; 85610; 85730; 93005; J7120